=== PATIENT | female | born 1965 | race African-American/Black ===

== ENCOUNTER 2016-11-01 12:53 | Emergency (ER) | payer MEDICARE, OTHER ==
[~2016-11-01 12:53] MED LIST: ABILIFY10 PO; ADALAT CC30 MG PO; ADALAT CC60 MG PO; ATEN25 PO; ATEN50 PO; ATROVENT HFA17 MCG INH; ATV1 PO; BACTRONASA NAS; BUSPAR10 PO; CELEXA20 PO; COREG25 PO; CORTOTSOL OT; DAYQUIL PO; DSS PO; DULERA 200 MCG/13 GM INH; DUONEB INH; DURICEF PO; EYE DROPS OP; GABAPENTIN PO; GGDM5ML PO; HABIT14 TOP; HABIT21 TOP; HC PO; HYDROCHLOROT25 MG PO; HYDROCODONE; K-TABS10 MEQ PO; KDUR10 PO; KLONO2 PO; KLOR-CON 1010 MEQ PO; KLOR-CON M2020 MEQ PO; L40 PO; LORTAB10 PO; MEDROLPAK4 PO; MELA3 PO; METHOC500B PO; METHOC750B PO; MICRO-K10 MEQ PO; MUCINEX600 MG PO; NEB INH; NEUR100 PO; NEUR300 PO; NEUR600 PO; NEUR800 PO; NICODERM C14 MG/24 H TOP; NIFEDIPINE PO; NORCO1 TAB PO; NORV5 PO; P10 PO; P20 PO; POTASSIUM PO; PRIN20 PO; PROAIR HFA INH; PROVENTSOL INH; PROVHFA INH; PROZAC PO; RANITIDINE PO; SEROQUEL XR300 MG PO; SEROQUEL300 MG PO; SEROQUEL400 MG PO; T PO; THERAFLU PO; ULTRAM50 PO; V5 PO; VIBRATAB100 MG PO; ZANAFLEX 4 MG TA4 MG PO; ZANTAC150 MG PO; ZOCOR20 PO; ZOL100 PO; [UNRECOGNIZED DRUG - OTHER] PO
== END 2016-11-01 16:57 | disposition home or self-care (01) ==
LOC: ER 12:53
DX: L73.9 Follicular disorder, unspecified (principal); I10 Essential (primary) hypertension; Z88.1 Allergy status to other antibiotic agents; Z79.899 Other long term (current) drug therapy
CPT/HCPCS: 99283